=== PATIENT | female | born 1960 | race American Indian/Alaskan Native ===

== ENCOUNTER 2016-12-28 12:26 | Emergency (ER) | payer BC ==
--- NOTE | 2016-12-28 13:28 | C.PDOC ---
History Of Present Illness 56 yr old female with PMHx of osteoarthritis , asthma, presents to the ER with complaints of left rib cage pain gradually developing for the past 4 days after sustaining a mechanical fall. Patient states she slipped in the tub, while taking a shower, hitting the edge of the tub. Patient states the pain is localized and non radiating, worse with movement. Patient denies head injury, LOC, syncope, headache, dizziness, visual changes, focal deficits, neck pain, SOB, CP, dyspnea, palpitations, abd. pain, N/V, back pain, denies saddle anesthesia, incontinence, deformity, weakness, sensory or vascular deficits to B /L UEs and LEs. Ambulate to ED for evaluation, not in any apparent distress. Time Seen by Provider: 12/28/16 12:46 Chief Complaint (Nursing): Rib Injury History Per: Patient History/Exam Limitations: no limitations Onset/Duration Of Symptoms: Gradual (4 days) Past Medical History Reviewed: Historical Data, Nursing Documentation, Vital Signs Vital Signs: Last Vital Signs Temp 97.4 F L 12/28/16 15:00 Pulse 86 12/28/16 15:00 Resp 16 12/28/16 15:00 BP 128/59 L 12/28/16 15:00 Pulse Ox 100 12/28/16 15:00 - Medical History PMH: Arthritis, HTN Family History: States: No Known Family Hx - Social History Hx Alcohol Use: Yes Hx Substance Use: No - Immunization History Hx Tetanus Toxoid Vaccination: No Hx Influenza Vaccination: Yes Hx Pneumococcal Vaccination: No Review Of Systems Except As Marked, All Systems Reviewed And Found Negative. Cardiovascular: Positive for: Other ((+) Left rib cage pain.). Negative for: Palpitations Respiratory: Negative for: Shortness of Breath Musculoskeletal: Negative for: Back Pain Neurological: Negative for: Weakness, Numbness Physical Exam - Physical Exam Appears: Well, Non-toxic, No Acute Distress Skin: Normal Color, Warm, Dry, No Ecchymosis Head: Atraumatic, Normacephalic Eye(s): bilateral: PERRL Ear(s): Bilateral: Normal Nose: No Discharge, No Deformity, No Tenderness Oral Mucosa: Moist, No Drooling Throat: No Erythema, No Exudate, No Drooling Neck: Supple Chest: Symmetrical, No Deformity, Tenderness (over Left 4-6 intercostal spaces, no palpable defomrity, no skin changes.), No Ecchymosis, No Subcutaneous Emphysema Cardiovascular: Rhythm Regular, No Murmur, No JVD Respiratory: No Decreased Breath Sounds, No Accessory Muscle Use, No Stridor, No Wheezing Gastrointestinal/Abdominal: Soft, No Tenderness, No Distention, No Guarding Back: No CVA Tenderness, No Vertebral Tenderness Extremity: Normal ROM, No Pedal Edema, No Deformity, No Swelling Neurological/Psych: Oriented x3, Normal Speech, Normal Motor, Normal Sensation, Normal Reflexes ED Course And Treatment O2 Sat by Pulse Oximetry: 98 (RA) Pulse Ox Interpretation: Normal - CT Scan/US CT - Chest Other Rad Studies (CT/US): Read By Radiologist, Radiology Report Reviewed CT/US Interpretation: PROCEDURE: CT Chest without contrast. HISTORY: injury. COMPARISON: None. TECHNIQUE: Contiguous axial images were obtained through the chest without intravenous contrast enhancement. Sagittal and coronal reconstructions were performed. . Radiation dose (DLP): 1014 mGy-cm. This CT exam was performed using one or more of the following dose reduction techniques : Automated exposure control, adjustment of the mA and/or kV according to patient size, and/or use of iterative reconstruction technique. FINDINGS: LUNGS: Limited bilateral the bilateral basilar dependent atelectasis greater the right than left including linear atelectasis or fibrosis minimally. No definite pulmonary contusion. . MEDIASTINUM: Unremarkable thoracic aorta. No aneurysm. Cardiomegaly. Main pulmonary artery unremarkable. No vascular congestion. No lymphadenopathy. PLEURA: No pleural fluid. No pneumothorax. BONES: No fracture. No destructive lesion. UPPER ABDOMEN: Grossly unremarkable. OTHER FINDINGS: None. IMPRESSION: No posttraumatic findings including fracture. Cardiomegaly identified without pericardial effusion. Progress Note: On re-evaluation, pt is afebrile, hemodynamicaly stable. non- toxic. Tolerate Po well in ED. PulseOx 100% RA. Head: AT/NC. ENT: no acute finidngs. neck: Supple, (-) midline tenderness. Lungs: CTA B/L, BS equal B/L. CVS: (+)S1S2, reg,. Abd: benign. Neuorlogicaly intact. CT chest w/o contrast results review and appears without acute abnormalities. Pt has clinical findings c/w Left ribcage contusion s/p mechanical fall. Pt advised . ref. to f/u with PMD in 2-3 days for re-eval. return to ED if any worsening or new changes. Medical Decision Making Medical Decision Making: PLAN: * CT - Chest * Valium PO Disposition Counseled Patient/Family Regarding: Studies Performed, Diagnosis, Need For Followup, Rx Given - Disposition Referrals: [facility] [Outside] Disposition: HOME/ ROUTINE Disposition Time: 14:48 Condition: STABLE Additional Instructions: LIght duty, avoid physical activity for 1 week take pain medication as prescribed as need Follow up with PMD In 2-3 days for re-evaluation. Return to ED if any worsening or new changes. Prescriptions: diaZEpam [Valium] 5 mg PO BID #7 tab Instructions: Rib Contusion (ED) Forms: Work/School/Gym Excuse, [facility] (Bulgarian) - Clinical Impression Clinical Impression: Rib contusion - PA / ROVING WINDER / Resident Statement MD/DO has reviewed & agrees with the documentation as recorded. - Scribe Statement The provider has reviewed the documentation as recorded by the Scribe Anastasiya Shelton All medical record entries made by the Scribe were at my direction and personally dictated by me. I have reviewed the chart and agree that the record accurately reflects my personal performance of the history, physical exam, medical decision making, and the department course for this patient. I have also personally directed, reviewed, and agree with the discharge instructions and disposition.
--- NOTE | 2016-12-28 14:37 | CT ---
PROCEDURE: CT Chest without contrast HISTORY: injury COMPARISON: None. TECHNIQUE: Contiguous axial images were obtained through the chest without intravenous contrast enhancement. Sagittal and coronal reconstructions were performed. Radiation dose (DLP): 1014 mGy-cm. This CT exam was performed using one or more of the following dose reduction techniques: Automated exposure control, adjustment of the mA and/or kV according to patient size, and/or use of iterative reconstruction technique. FINDINGS: LUNGS: Limited bilateral the bilateral basilar dependent atelectasis greater the right than left including linear atelectasis or fibrosis minimally. No definite pulmonary contusion. . MEDIASTINUM: Unremarkable thoracic aorta. No aneurysm. Cardiomegaly. Main pulmonary artery unremarkable. No vascular congestion. No lymphadenopathy. PLEURA: No pleural fluid. No pneumothorax. BONES: No fracture. No destructive lesion. UPPER ABDOMEN: Grossly unremarkable. OTHER FINDINGS: None. IMPRESSION: No posttraumatic findings including fracture. Cardiomegaly identified without pericardial effusion.
[2016-12-28 15:02] VITALS: BP 128/59; PULSE 86; RESP 16; TEMP 97.4
[2016-12-28 16:08] VITALS: O2SAT 98
== END 2016-12-28 15:05 | disposition home or self-care (01) ==
LOC: C.ER 12:26
DX: S20.212A Contusion of left front wall of thorax, initial encounter (principal); W18.2XXA Fall in (into) shower or empty bathtub, initial encounter; Y93.E1 Activity, personal bathing and showering